=== PATIENT | male | born 1930 | race Caucasian/White ===

== ENCOUNTER → 2016-03-28 | Outpatient (CLI) | payer MEDICARE, OTHER ==
[~2016-03-28] MED LIST: ALLO100T PO; COU1 PO; FINA5TAB4 PO; HYDR-3498 PO; METF-382 PO; METO25TA4 PO; SIMV5TAB50 PO; TAMS0.4C2 PO; VALS40TA2 PO
--- NOTE | 2016-03-28 16:06 | RADRPT ---
PROCEDURE: Right knee radiographs. CLINICAL INDICATION: Right knee pain. Postop. TECHNIQUE: Three views. Weight bearing. Frontal, lateral, and patellar view. COMPARISON: 12/07/2015. FINDINGS: There is no fracture or dislocation. The soft tissues are normal. 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 There is no lytic or blastic lesion. There is no joint effusion. IMPRESSION: 1. Satisfactory postoperative appearance of the right knee. RPTAT: QQ .Lonnie Raya MD, Date Time Electronically viewed and signed by .Lonnie Raya MD, on 03/28/2016 16:06 .R/
== END | disposition home or self-care (01) ==
LOC: HKI 14:24
PROVIDERS: ATTEND Orthopaedic Surgery
DX: M17.12 Unilateral primary osteoarthritis, left knee (principal); Z96.651 Presence of right artificial knee joint; I10 Essential (primary) hypertension; N40.0 Benign prostatic hyperplasia without lower urinary tract symptoms
CPT/HCPCS: 73562; G0463

== ENCOUNTER → 2016-09-26 | Outpatient (CLI) | payer MEDICARE, OTHER ==
[~2016-09-26] MED LIST changes: -METF-382 PO; +METF500T4 PO
--- NOTE | 2016-09-26 16:59 | RADRPT ---
PROCEDURE: Right knee radiographs. CLINICAL INDICATION: Right knee pain. Postop. TECHNIQUE: Three views. Weight bearing. Frontal, lateral, and patellar view. COMPARISON: 03/28/2016. FINDINGS: There is no fracture or dislocation. There is a joint effusion. The soft tissues are otherwise normal. 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 There is no lytic or blastic lesion. IMPRESSION: 1. Joint effusion. 2. Otherwise unremarkable postoperative appearance of the right knee. RPTAT: QQ .Lonnie Raya MD, MD Date Time Electronically viewed and signed by .Lonnie Raya MD, MD on 09/26/2016 16:59 .R/
== END | disposition home or self-care (01) ==
LOC: HKI 14:21
PROVIDERS: ATTEND Orthopaedic Surgery
DX: M25.562 Pain in left knee (principal); M17.12 Unilateral primary osteoarthritis, left knee; Z96.651 Presence of right artificial knee joint
CPT/HCPCS: G0463